=== PATIENT | male | born 1965 ===

== ENCOUNTER 2018-04-17 11:25 | Inpatient (IN) | payer OTHER ==
--- NOTE | 2018-04-17 13:04 | ED PDOC ---
HPI: Abdomen Time Seen by Provider: 04/17/18 12:04 Chief Complaint (Nursing): Abdominal Pain History Per: Patient Additional Complaint(s): Pt. states this morning he woke up with non-radiating epigastric abd pain. Reports pain has no alleviating or exacerbating factors. Attempted to have a BM prior to arrival to help relieve symptoms. Pt states stool was normal but it did not relieve abd pain. Denies N/V/D, chest pain, SOB, hemoptysis, previous abd surgeries, back pain, melena, hematochezia, BRBPR, rectal bleeding, hematemesis. Past Medical History Reviewed: Historical Data, Nursing Documentation, Vital Signs Vital Signs: Last Vital Signs Temp 97.5 F L 04/17/18 12:01 Pulse 81 04/17/18 12:01 Resp 16 04/17/18 12:01 BP 162/95 H 04/17/18 12:01 Pulse Ox 98 04/17/18 12:01 - Medical History PMH: Diabetes (no meds, diet controlled), Hypercholesterolemia (no meds, diet controlled), Sleep Apnea Denies: CAD, HTN, Hyperlipidemia, Chronic Kidney Disease - Surgical History Surgical History: No Surg Hx - Family History Family History: States: No Known Family Hx - Home Medications Home Medications: Ambulatory Orders Medication Instructions Recorded No Known Home Med 04/17/18 - Allergies Allergies/Adverse Reactions: Allergies Allergy/AdvReac Type Severity Reaction Status Date / Time No Known Allergies Allergy Verified 04/17/18 12:01 Review of Systems ROS Statement: Except As Marked, All Systems Reviewed And Found Negative Gastrointestinal: Positive for: Abdominal Pain Physical Exam - Physical Exam Appears: Positive for: Well, Non-toxic, No Acute Distress Skin: Positive for: Normal Color, Warm. Negative for: Rash Eye Exam: Positive for: Normal appearance Cardiovascular/Chest: Positive for: Regular Rate, Rhythm Respiratory: Positive for: Normal Breath Sounds Gastrointestinal/Abdominal: Positive for: Soft, Tenderness (mild epigastric tednerness). Negative for: Organomegaly, Distended Back: Negative for: L CVA Tenderness, R CVA Tenderness Neurologic/Psych: Positive for: Alert, Oriented (x3) - Laboratory Results Result Diagrams: 04/17/18 12:50 04/17/18 12:50 - ECG ECG: Positive for: Interpreted By Me ECG Rhythm: Positive for: Sinus Rhythm. Negative for: ST/T Changes Rate: 70 O2 Sat by Pulse Oximetry: 98 - Radiology X-Ray: Read By Radiologist (CXR) X-Ray Interpretation: No Acute Disease - Progress ED Course And Treament: Labs, pepcid 20mg IV, abd US ordered. 1358 Abd US: The gallbladder appears moderately distended but without mural thickening or pericholecystic fluid collection. No cholelithiasis associated. No sonographic Crowley sign reported. On re-evaluation, pt. reports feeling better. WBC: 19.9. VBG ordered. Case d/w Dr. Mccarthy, operating room surgical technician, who recommends CT. CT abd/pelvis w/ PO and IV contrast ordered. 1740 CT abd/pelvis: Dilated fluid-filled appendix. Concerning for acute appendici tis. No periappendiceal inflammatory change. No periappendiceal abscess or free air. Case d/w Dr. Davis, operating room surgical technician, who requests Zosyn to be given and states pt. can be admitted under Dr. Fuchs. Pt. and family informed of plan who both agree with plan. All questions answered . Disposition - Clinical Impression Clinical Impression: Appendicitis - Patient ED Disposition Is Patient to be Admitted: Yes - Disposition Disposition Time: 17:40 Condition: FAIR
[2018-04-17 13:07] LABS: BASO % 0.1 % (0.0-2.0); EOS % 0.2 % (0.0-4.0); HEMOGLOBIN 17.4 g/dL (12.0-18.0); LYMPH # 0.6 K/uL (1.0-4.3); LYMPH % 2.9 % (20.0-40.0); MEAN CELL VOLUME 90.8 fl (80.0-94.0); MEAN CORPUSCULAR HEMOGLOBIN 30.2 pg (27.0-31.0); MEAN CORPUSCULAR HGB CONC 33.2 g/dL (33.0-37.0); MEAN PLATELET VOLUME 9.3 fl (7.2-11.7); MONO # 0.8 K/uL (0.0-0.8); MONO % 4.1 % (0.0-10.0); NEUT # 18.4 K/uL (1.8-7.0); NEUT % 92.7 % (50.0-75.0); NRBC % 0.1 % (0.0-0.0); PLATELET COUNT 318 K/uL (130-400); RBC 5.76 Mil/uL (4.40-5.90); RED CELL DISTRIBUTION WIDTH 13.2 % (11.5-14.5); WHITE BLOOD COUNT 19.9 K/uL (4.8-10.8)
[2018-04-17 13:14] LABS: ALB/GLOB RATIO 1.2 (1.0-2.1); ALBUMIN 4.9 g/dL (3.5-5.0); ALT/SGPT 44 U/L (21-72); AST/SGOT 34 U/L (17-59); BLOOD UREA NITROGEN 18 mg/dl (9-20); CALCIUM 9.9 mg/dL (8.4-10.2); GFR NON-AFRICAN AMERICAN > 60; LIPASE 97 U/L (23-300)
[2018-04-17] MEDS ORDERED: Sodium Chloride 0.9% 1,000 ML IV STA (13:22)
--- NOTE | 2018-04-17 14:02 | US ---
Date of service: 04/17/2018 HISTORY: epigastric abd pain COMPARISON: None. TECHNIQUE: Sonographic evaluation of the abdomen. FINDINGS: LIVER: Measures 14.3 cm. Diffusely increased echogenicity of the liver parenchyma identified compatible with hepatic steatosis or other infiltrative hepatic process. Normal directional blood flow is appreciated at the main portal vein. No mass. No intrahepatic bile duct dilatation. GALLBLADDER: The gallbladder appears moderately distended but without mural thickening or pericholecystic fluid collection. No cholelithiasis associated. No sonographic Crowley sign reported. COMMON BILE DUCT: Measures 4.0 mm. No stones. No dilatation. PANCREAS: Extensive overlying bowel gas completely obscures the pancreas. RIGHT KIDNEY: Measures 10.5cm. No calculus, mass, or hydronephrosis. No suspicious parenchymal findings. LEFT KIDNEY: Measures 11.7cm. No calculus, mass, or hydronephrosis. No suspicious parenchymal findings. SPLEEN: Normal in size and contour. No mass. AORTA: No aneurysmal dilatation. IVC: Unremarkable. OTHER FINDINGS: None. IMPRESSION: 1. Hepatic steatosis or other infiltrative hepatic process identified. No intrahepatic biliary dilatation. 2. Extensive overlying bowel gas completely obscures the pancreas. 3. Examination otherwise unremarkable appearing.
[2018-04-17 14:03] LABS: VENOUS BLOOD GAS BASE EXCESS -0.7 mmol/L (0.0-2.0); VENOUS BLOOD GAS PCO2 49 mmHg (40-60); VENOUS BLOOD GAS PO2 33 mm/Hg (30-55); VENOUS BLOOD PH 7.33 (7.32-7.43)
[2018-04-17 14:08] LABS: BANDS 9 % (0-2); LYMPHOCYTE 1 % (20-50); MONOCYTE 4 % (0-10); NEUTROPHIL 84 % (42-75); REACTIVE LYMPHOCYTES 2 % (0-0); TOTAL CELLS COUNTED 100
[2018-04-17 14:12] LABS: PLATELET ESTIMATE NORMAL (NORMAL); TOXIC GRANULATION PRESENT
[2018-04-17] MEDS ORDERED: Iohexol 240 (50 ml) PO ONE (14:13)
[2018-04-17 14:29] LABS: URINE BACTERIA RARE (<OCC); URINE BILIRUBIN NEGATIVE (NEGATIVE); URINE BLOOD NEGATIVE (NEGATIVE); URINE CLARITY CLOUDY (Clear); URINE COLOR AMBER (YELLOW); URINE GLUCOSE (UA) 50 mg/dL (NEGATIVE); URINE LEUKOCYTE ESTERASE NEG Leu/uL (Negative); URINE PROTEIN 100 mg/dL (NEGATIVE); URINE UROBILINOGEN 0.2-1.0 mg/dL (0.2-1.0)
[2018-04-17] MEDS ORDERED: Iohexol 240 (50 ml) ONE (15:00)
--- NOTE | 2018-04-17 15:01 | CARD ---
APPROVED REPORT Date of service: 04/17/2018 EKG Measurement Heart [id number] <Conclusion> Normal sinus rhythm Normal ECG
[2018-04-17] MEDS ORDERED: Iohexol 300 100 ML IJ ONE (15:19)
[2018-04-17] MEDS ORDERED: Sodium Chloride 0.9% 50 ML IV ONE (15:19)
--- NOTE | 2018-04-17 15:53 | RAD ---
Date of service: 04/17/2018 HISTORY: epigastric abd pain COMPARISON: No prior. FINDINGS: LUNGS: No active pulmonary disease. PLEURA: No significant pleural effusion identified, no pneumothorax apparent. CARDIOVASCULAR: No aortic atherosclerotic calcification present. Normal cardiac size. No pulmonary vascular congestion. OSSEOUS STRUCTURES: No significant abnormalities. VISUALIZED UPPER ABDOMEN: Normal. OTHER FINDINGS: None. IMPRESSION: No active disease.
--- NOTE | 2018-04-17 17:44 | CT ---
Date of service: 04/17/2018 PROCEDURE: CT Abdomen and Pelvis with contrast HISTORY: epigastric abd pain COMPARISON: None. TECHNIQUE: Contrast dose: 95 mL Omnipaque 300 Radiation dose: Total exam DLP = 838.04 mGy-cm. This CT exam was performed using one or more of the following dose reduction techniques: Automated exposure control, adjustment of the mA and/or kV according to patient size, and/or use of iterative reconstruction technique. FINDINGS: LOWER THORAX: Unremarkable. LIVER: Unremarkable. No gross lesion or ductal dilatation. GALLBLADDER AND BILE DUCTS: Unremarkable. PANCREAS: Unremarkable. No gross lesion or ductal dilatation. SPLEEN: Unremarkable. ADRENALS: Unremarkable. No mass. KIDNEYS AND URETERS: Unremarkable. No hydronephrosis. No solid mass. VASCULATURE: Unremarkable. No aortic aneurysm. No aortic atherosclerotic calcification or mural plaque present. BOWEL: Unremarkable. No obstruction. No gross mural thickening. APPENDIX: The appendix is distended with fluid and measures up to 10 mm in diameter. There is no periappendiceal inflammatory change noted. Nevertheless, this is concerning for acute appendicitis. No periappendiceal abscess or free intraperitoneal air. Correlate clinically. PERITONEUM: Unremarkable. No free fluid. No free air. LYMPH NODES: Unremarkable. No enlarged lymph nodes. BLADDER: Unremarkable. REPRODUCTIVE: Normal prostate BONES: No acute fracture. OTHER FINDINGS: None. IMPRESSION: Dilated fluid-filled appendix. Concerning for acute appendicitis. No periappendiceal inflammatory change. No periappendiceal abscess or free air.
[2018-04-17] MEDS ORDERED: Piperacillin/Tazobact 3.375 GM in Sodium Chloride 0.9% 100 ML IVPB STA (17:55)
[2018-04-17] MEDS ORDERED: Morphine 4 MG/ML VIAL IVP PRN (18:46)
--- NOTE | 2018-04-17 18:55 | CP.PCM.HP ---
History of Present Illness - History of Present Illness History of Present Illness: 52M with PMHx of asthma, DM, presents to [facility] ED with complaints of abdominal pain. Patient states pain started this morning while working. He reported feeling epigastric discomfort initially. Patient thought it was gas cramps so he tried drinking some artemio miroslava which did not alleviate the pain. As time went by patient reports pain became generalized throughout his abdomen. Denies fever/chills, chest pain, shortness of breath, nausea/vomiting, dysuria . Reports having normal BM in AM. PMH: as stated above PSH: denies Allergies: NKDA Soc HX: denies smoking, EtOH use, illicit drug use Present on Admission - Present on Admission Any Indicators Present on Admission: No Review of Systems - Review of Systems All systems: reviewed and no additional remarkable complaints except Review of Systems: as stated in HPI Past Patient History - Past Social History Smoking Status: Former Smoker - CARDIAC Hx Hypercholesterolemia: No Hx Hypertension: No - PULMONARY Hx Sleep Apnea: Yes - NEUROLOGICAL Hx Neurological Disorder: No - HEENT Hx HEENT Problems: No - RENAL Hx Chronic Kidney Disease: No - ENDOCRINE/METABOLIC Hx Endocrine Disorders: No - HEMATOLOGICAL/ONCOLOGICAL Hx Blood Disorders: No - INTEGUMENTARY Hx Dermatological Problems: No - MUSCULOSKELETAL/RHEUMATOLOGICAL Hx Musculoskeletal Disorders: No - GASTROINTESTINAL Hx Gastrointestinal Disorders: No - GENITOURINARY/GYNECOLOGICAL Hx Genitourinary Disorders: No - PSYCHIATRIC Hx Psychophysiologic Disorder: No Hx Substance Use: No - SURGICAL HISTORY Hx Surgeries: No - ANESTHESIA Hx Anesthesia: No Meds Allergies/Adverse Reactions: Allergies Allergy/AdvReac Type Severity Reaction Status Date / Time No Known Allergies Allergy Verified 04/17/18 12:01 Physical Exam - Constitutional Appears: Non-toxic, No Acute Distress - Head Exam Head Exam: NORMOCEPHALIC - Eye Exam Eye Exam: EOMI, Normal appearance - ENT Exam ENT Exam: Mucous Membranes Dry - Respiratory Exam Respiratory Exam: NORMAL BREATHING PATTERN - Cardiovascular Exam Cardiovascular Exam: +S1, +S2. absent: Tachycardia - GI/Abdominal Exam GI & Abdominal Exam: Soft. absent: Distended, Firm, Guarding, Rebound, Rigid Additional comments: mild epigatric tenderness - Neurological Exam Neurological exam: Alert, Oriented x3 - Psychiatric Exam Psychiatric exam: Normal Mood - Skin Skin Exam: Dry, Intact, Warm Results - Vital Signs Recent Vital Signs: Last Vital Signs Temp 97.5 F L 04/17/18 12:01 Pulse 70 04/17/18 14:01 Resp 16 04/17/18 12:01 BP 162/95 H 04/17/18 12:01 Pulse Ox 98 04/17/18 14:01 - Labs Result Diagrams: 04/17/18 12:50 04/17/18 12:50 Labs: Laboratory Results - last 24 hr 04/17/18 04/17/18 04/17/18 12:50 12:50 12:50 WBC 19.9 H RBC 5.76 Hgb 17.4 Hct 52.3 H MCV 90.8 MCH 30.2 MCHC 33.2 RDW 13.2 Plt Count 318 MPV 9.3 Neut % (Auto) 92.7 H Lymph % (Auto) 2.9 L Fountain % (Auto) 4.1 Eos % (Auto) 0.2 Baso % (Auto) 0.1 Neut # (Auto) 18.4 H Lymph # (Auto) 0.6 L [place] # (Auto) 0.8 Eos # (Auto) 0.0 Baso # (Auto) 0.0 Neutrophils % (Manual) 84 H Band Neutrophils % 9 H Lymphocytes % (Manual) 1 L Reactive Lymphs % 2 H Monocytes % (Manual) 4 Toxic Granulation Present Platelet Estimate Normal RBC Morphology Normal pO2 VBG pH VBG pCO2 VBG HCO3 VBG Total CO2 VBG O2 Sat (Calc) VBG Base Excess VBG Potassium Glucose Lactate FiO2 Sodium 140 Potassium 5.1 H Chloride 97 L Carbon Dioxide 30 Anion Gap 18 BUN 18 Creatinine 1.0 Est GFR ( Amer) > 60 Est GFR (Non-Af Amer) > 60 Random Glucose 228 H Calcium 9.9 Total Bilirubin 0.6 AST 34 ALT 44 Alkaline Phosphatase 115 Troponin I < 0.0120 Total Protein 8.9 H Albumin 4.9 Globulin 4.0 H Albumin/Globulin Ratio 1.2 Lipase 97 Venous Blood Potassium Urine Color Barbara Urine Clarity Cloudy Urine pH 5.0 Ur Specific [place] 1.033 H Urine Protein 100 Urine Glucose (UA) 50 Urine Ketones 20 Urine Blood Negative Urine Nitrate Negative Urine Bilirubin Negative Urine Urobilinogen 0.2-1.0 Ur Leukocyte Esterase Neg Urine RBC (Auto) 1 Urine Microscopic WBC 3 Urine Bacteria Rare Alcohol, Quantitative < 10 04/17/18 13:55 WBC RBC Hgb Hct MCV MCH MCHC RDW Plt Count MPV Neut % (Auto) Lymph % (Auto) Fountain % (Auto) Eos % (Auto) Baso % (Auto) Neut # (Auto) Lymph # (Auto) Fountain # (Auto) Eos # (Auto) Baso # (Auto) Neutrophils % (Manual) Band Neutrophils % Lymphocytes % (Manual) Reactive Lymphs % Monocytes % (Manual) Toxic Granulation Platelet Estimate RBC Morphology pO2 33 VBG pH 7.33 VBG pCO2 49 VBG HCO3 23.3 VBG Total CO2 27.3 VBG O2 Sat (Calc) 66.6 H VBG Base Excess -0.7 L VBG Potassium 4.4 Glucose 210 H Lactate 1.6 FiO2 21.0 Sodium 134.0 Potassium Chloride 104.0 Carbon Dioxide Anion Gap BUN Creatinine Est GFR ( Amer) Est GFR (Non-Af Amer) Random Glucose Calcium Total Bilirubin AST ALT Alkaline Phosphatase Troponin I Total Protein Albumin Globulin Albumin/Globulin Ratio Lipase Venous Blood Potassium 4.4 Urine Color Urine Clarity Urine pH Ur Specific [place] Urine Protein Urine Glucose (UA) Urine Ketones Urine Blood Urine Nitrate Urine Bilirubin Urine Urobilinogen Ur Leukocyte Esterase Urine RBC (Auto) Urine Microscopic WBC Urine Bacteria Alcohol, Quantitative Assessment & Plan - Assessment and Plan (Free Text) Assessment: 52M with acute appendicitis Plan: NPO IVF Insulin sliding scale ABx Analgesics prn Anti-emetic prn GI ppx SCDs Will plan for OR for laparoscopic appendectomy, possible open D/w Dr. Jef Elliott PGY3
[2018-04-17] MEDS ORDERED: Sodium Chloride 0.9% 1,000 ML IV SCH (19:00)
[2018-04-17 19:03] LABS: INR 1.1
[2018-04-17 19:05] LABS: PARTIAL THROMBOPLASTIN TIME 30.8 Seconds (25.6-37.1)
[2018-04-17] MEDS ORDERED: Insulin Regular 100 units/ml ONE (19:16)
[2018-04-17] MEDS ORDERED: Piperacillin/Tazobact 3.375 gm Inj IVPB ONE (19:16)
[2018-04-17] MEDS: Insulin Regular 100 units/ml SC SCH (19:23)
[2018-04-17] MEDS: Dextrose 5%/0.9% NS 1,000 ML IV SCH (22:54)
[2018-04-17] MEDS: Piperacillin/Tazobact 3.375 GM in Sodium Chloride 0.9% 100 ML IVPB SCH (22:55)
[2018-04-18] MEDS: Insulin Regular 100 units/ml SC SCH ×4 (00:51→19:26)
[2018-04-18] MEDS: Piperacillin/Tazobact 3.375 GM in Sodium Chloride 0.9% 100 ML IVPB SCH ×4 (03:23→21:42)
[2018-04-18 06:28] LABS: BASO # 0.1 K/uL (0.0-0.2); BASO % 0.7 % (0.0-2.0); EOS # 0.7 K/uL (0.0-0.7); EOS % 7.6 % (0.0-4.0); HEMOGLOBIN 14.3 g/dL (12.0-18.0); LYMPH # 1.7 K/uL (1.0-4.3); LYMPH % 17.8 % (20.0-40.0); MEAN CELL VOLUME 91.3 fl (80.0-94.0); MEAN CORPUSCULAR HEMOGLOBIN 31.1 pg (27.0-31.0); MEAN PLATELET VOLUME 9.4 fl (7.2-11.7); MONO # 0.7 K/uL (0.0-0.8); MONO % 6.8 % (0.0-10.0); NEUT # 6.5 K/uL (1.8-7.0); NEUT % 67.1 % (50.0-75.0); NRBC % 0.2 % (0.0-0.0); RBC 4.6 Mil/uL (4.40-5.90); RED CELL DISTRIBUTION WIDTH 13.4 % (11.5-14.5); WHITE BLOOD COUNT 9.7 K/uL (4.8-10.8)
[2018-04-18 06:57] LABS: BLOOD UREA NITROGEN 14 mg/dl (9-20); CALCIUM 8.1 mg/dL (8.4-10.2); GFR NON-AFRICAN AMERICAN > 60
[2018-04-18] MEDS ORDERED: Influenza Vaccine 60 mcg/0.5 mL SYR (4YR UP) IM ONE (07:30)
[2018-04-18] MEDS ORDERED: Influenza Vaccine (5 YR UP)/PF 60 MCG/0.5 ML SYR IM ONE (09:00)
[2018-04-18] MEDS: Dextrose 5%/0.9% NS 1,000 ML IV SCH (09:22)
[2018-04-18] MEDS ORDERED: Midazolam 2 MG/2 ML VIAL ONE (09:40)
[2018-04-18] MEDS ORDERED: Rocuronium 10 mg/ml (5 ml) ONE (09:40)
[2018-04-18] MEDS ORDERED: Neostigmine 1:1000 (1 mg/ml) Inj ONE (09:40)
[2018-04-18] MEDS ORDERED: Lidocaine 4% (Laryng-O-Jet) Kit MM ONE (09:40)
[2018-04-18] MEDS ORDERED: Propofol 10 mg/ml Inj (20 ML) ONE (09:40)
[2018-04-18] MEDS ORDERED: Succinylcholine Chloride 20 mg/ml Syr (5 ml) IV ONE (09:41)
[2018-04-18] MEDS ORDERED: Phenylephrine 10 mg/ml Inj ONE (09:45)
[2018-04-18] MEDS ORDERED: Bupivacaine HCl 0.5% PF (30 ml) Inj ONE (09:47)
[2018-04-18] MEDS ORDERED: DEXTROSE IV ONE (11:15)
[2018-04-18] MEDS ORDERED: NS IV ONE (11:15)
[2018-04-18] MEDS ORDERED: Lactated Ringer's 1,000 ML IV ONE (11:18)
--- NOTE | 2018-04-18 11:43 | PCM.SURG1 ---
Surgeon's Initial Post Op Note - Surgeon's Notes Surgeon: Dr. Fuchs Neighborhood Aide: Dr. Jennifer Mccarthy Type of Anesthesia: General Endo, Local Pre-Operative Diagnosis: Acute Appendicitis Operative Findings: acutely inflammed appendix Post-Operative Diagnosis: acute appendicitis Operation Performed: laparoscopic appendectomy Specimen/Specimens Removed: appendix Estimated Blood Loss: EBL {In ML}: 10 Blood Products Given: N/A Drains Used: No Drains Post-Op Condition: Good Date of Surgery/Procedure: 04/18/18 Time of Surgery/Procedure: 11:43
[2018-04-18] MEDS ORDERED: Morphine 5 MG/ML SYRINGE IVP PRN (11:44)
[2018-04-18] MEDS ORDERED: Lactated Ringer's 1,000 ML IV SCH (11:45)
[2018-04-19] MEDS: Insulin Regular 100 units/ml SC SCH ×2 (00:59→09:32)
[2018-04-19] MEDS: Piperacillin/Tazobact 3.375 GM in Sodium Chloride 0.9% 100 ML IVPB SCH (04:11)
[2018-04-19] MEDS ORDERED: Insulin NPH Human 100 Units/ml Inj SC SCH (08:00)
--- NOTE | 2018-04-19 08:04 | CP.PCM.DIS ---
Provider - Provider Date of Admission: 04/17/18 18:15 Attending physician: James Fuchs MD Consults: 04/17/18 17:56 General Surgery Consult Stat Comment: Consulting Provider: James Fuchs Consulting Physician: James Fuchs Reason for Consult: appendicitis Time Spent in preparation of Discharge (in minutes): 25 Hospital Course - Lab Results Lab Results: Micro Results 04/17/18 18:40 Blood-Venous Blood Culture - Preliminary NO GROWTH AFTER 24 HOURS 04/17/18 19:00 Blood-Venous Blood Culture - Preliminary NO GROWTH AFTER 24 HOURS Most Recent Lab Values WBC 9.7 K/uL (4.8-10.8) D 04/18/18 06:00 RBC 4.60 Mil/uL (4.40-5.90) 04/18/18 06:00 Hgb 14.3 g/dL (12.0-18.0) D 04/18/18 06:00 Hct 42.0 % (35.0-51.0) 04/18/18 06:00 MCV 91.3 fl (80.0-94.0) 04/18/18 06:00 MCH 31.1 pg (27.0-31.0) H 04/18/18 06:00 MCHC 34.0 g/dL (33.0-37.0) 04/18/18 06:00 RDW 13.4 % (11.5-14.5) 04/18/18 06:00 Plt Count 291 K/uL (130-400) 04/18/18 06:00 MPV 9.4 fl (7.2-11.7) 04/18/18 06:00 Neut % (Auto) 67.1 % (50.0-75.0) 04/18/18 06:00 Lymph % (Auto) 17.8 % (20.0-40.0) L 04/18/18 06:00 Clarke % (Auto) 6.8 % (0.0-10.0) 04/18/18 06:00 Eos % (Auto) 7.6 % (0.0-4.0) H 04/18/18 06:00 Baso % (Auto) 0.7 % (0.0-2.0) 04/18/18 06:00 Neut # (Auto) 6.5 K/uL (1.8-7.0) 04/18/18 06:00 Lymph # (Auto) 1.7 K/uL (1.0-4.3) 04/18/18 06:00 Clarke # (Auto) 0.7 K/uL (0.0-0.8) 04/18/18 06:00 Eos # (Auto) 0.7 K/uL (0.0-0.7) 04/18/18 06:00 Baso # (Auto) 0.1 K/uL (0.0-0.2) 04/18/18 06:00 Neutrophils % (Manual) 84 % (42-75) H 04/17/18 12:50 Band Neutrophils % 9 % (0-2) H 04/17/18 12:50 Lymphocytes % (Manual) 1 % (20-50) L 04/17/18 12:50 Reactive Lymphs % 2 % (0-0) H 04/17/18 12:50 Monocytes % (Manual) 4 % (0-10) 04/17/18 12:50 Toxic Granulation Present 04/17/18 12:50 Platelet Estimate Normal (NORMAL) 04/17/18 12:50 RBC Morphology Normal (NORMAL) 04/17/18 12:50 PT 12.0 Seconds (9.8-13.1) 04/17/18 18:53 INR 1.1 04/17/18 18:53 APTT 30.8 Seconds (25.6-37.1) 04/17/18 18:53 pO2 33 mm/Hg (30-55) 04/17/18 13:55 VBG pH 7.33 (7.32-7.43) 04/17/18 13:55 VBG pCO2 49 mmHg (40-60) 04/17/18 13:55 VBG HCO3 23.3 mmol/L 04/17/18 13:55 VBG Total CO2 27.3 mmol/L (22-28) 04/17/18 13:55 VBG O2 Sat (Calc) 66.6 % (40-65) H 04/17/18 13:55 VBG Base Excess -0.7 mmol/L (0.0-2.0) L 04/17/18 13:55 VBG Potassium 4.4 mmol/L (3.6-5.2) 04/17/18 13:55 Sodium 134.0 mmol/L (132-148) 04/17/18 13:55 Chloride 104.0 mmol/L (98-107) 04/17/18 13:55 Glucose 210 mg/dL (75-110) H 04/17/18 13:55 Lactate 1.6 mmol/L (0.7-2.1) 04/17/18 13:55 FiO2 21.0 % 04/17/18 13:55 Sodium 139 mmol/l (132-148) 04/18/18 06:00 Potassium 4.0 MMOL/L (3.6-5.0) 04/18/18 06:00 Chloride 101 mmol/L (98-107) 04/18/18 06:00 Carbon Dioxide 26 mmol/L (22-30) 04/18/18 06:00 Anion Gap 16 (10-20) 04/18/18 06:00 BUN 14 mg/dl (9-20) 04/18/18 06:00 Creatinine 1.1 mg/dl (0.8-1.5) 04/18/18 06:00 Est GFR ( Amer) > 60 04/18/18 06:00 Est GFR (Non-Af Amer) > 60 04/18/18 06:00 POC Glucose (mg/dL) 154 mg/dL (65-110) H 04/19/18 05:28 Random Glucose 134 mg/dL (75-110) H 04/18/18 06:00 Calcium 8.1 mg/dL (8.4-10.2) L 04/18/18 06:00 Phosphorus 2.9 mg/dl (2.5-4.5) 04/18/18 06:00 Magnesium 1.8 MG/DL (1.6-2.3) 04/18/18 06:00 Total Bilirubin 0.6 mg/dl (0.2-1.3) 04/17/18 12:50 AST 34 U/L (17-59) 04/17/18 12:50 ALT 44 U/L (21-72) 04/17/18 12:50 Alkaline Phosphatase 115 U/L (38-126) 04/17/18 12:50 Troponin I < 0.0120 ng/mL (0.00-0.120) 04/17/18 12:50 Total Protein 8.9 G/DL (6.3-8.2) H 04/17/18 12:50 Albumin 4.9 g/dL (3.5-5.0) 04/17/18 12:50 Globulin 4.0 gm/dL (2.2-3.9) H 04/17/18 12:50 Albumin/Globulin Ratio 1.2 (1.0-2.1) 04/17/18 12:50 Lipase 97 U/L (23-300) 04/17/18 12:50 Venous Blood Potassium 4.4 mmol/L (3.6-5.2) 04/17/18 13:55 Urine Color Barbara (YELLOW) 04/17/18 12:50 Urine Clarity Cloudy (Clear) 04/17/18 12:50 Urine pH 5.0 (5.0-8.0) 04/17/18 12:50 Ur Specific [place] 1.033 (1.003-1.030) H 04/17/18 12:50 Urine Protein 100 mg/dL (NEGATIVE) 04/17/18 12:50 Urine Glucose (UA) 50 mg/dL (NEGATIVE) 04/17/18 12:50 Urine Ketones 20 mg/dL (NEGATIVE) 04/17/18 12:50 Urine Blood Negative (NEGATIVE) 04/17/18 12:50 Urine Nitrate Negative (NEGATIVE) 04/17/18 12:50 Urine Bilirubin Negative (NEGATIVE) 04/17/18 12:50 Urine Urobilinogen 0.2-1.0 mg/dL (0.2-1.0) 04/17/18 12:50 Ur Leukocyte Esterase Neg Adalberto/uL (Negative) 04/17/18 12:50 Urine RBC (Auto) 1 /hpf (0-3) 04/17/18 12:50 Urine Microscopic WBC 3 /hpf (0-5) 04/17/18 12:50 Urine Bacteria Rare (<OCC) 04/17/18 12:50 Alcohol, Quantitative < 10 mg/dl (0-10) 04/17/18 12:50 Blood Type O POSITIVE 04/17/18 18:53 Antibody Screen Negative 04/17/18 18:53 BBK History Checked No verified bt 04/17/18 18:53 - Hospital Course Hospital Course: 20: 52M with PMHx of asthma, DM, presents to [facility] ED with complaints of abdominal pain. Patient states pain started this morning while working. He reported feeling epigastric discomfort initially. Patient thought it was gas cramps so he tried drinking some artemio miroslava which did not alleviate the pain. As time went by patient reports pain became generalized throughout his abdomen. Denies fever/chills, chest pain, shortness of breath, nausea/vomiting, dysuria . Reports having normal BM in AM. 04/18: Patient underwent laparoscopic appendectomy, no intra-operative complications. 04/19: Patient doing well tolerating diet. Complaining of shoulder pain 2/2 pneumoperitoneum. Recommend ambulating. Will follow up in surgery office in 1 week. Above is a brief summary of hospital events. For more details please see EMR. Discharge Exam - Head Exam Head Exam: NORMOCEPHALIC - Eye Exam Eye Exam: EOMI, Normal appearance - ENT Exam ENT Exam: Mucous Membranes Moist - Respiratory Exam Respiratory Exam: NORMAL BREATHING PATTERN - Cardiovascular Exam Cardiovascular Exam: +S1, +S2 - GI/Abdominal Exam GI & Abdominal Exam: Soft, Tenderness. absent: Distended, Firm, Guarding, Hernia, Rebound, Rigid Additional comments: incision site tenderness - Neurological Exam Neurological exam: Alert, Oriented x3 - Psychiatric Exam Psychiatric exam: Normal Mood - Skin Skin Exam: Dry, Intact, Warm Discharge Plan - Follow Up Plan Condition: STABLE Disposition: HOME/ ROUTINE Instructions: Appendicitis, Adult (DC) Additional Instructions: Follow up with Dr. Fuchs in 1 week OK to shower Avoid heavy lifting for ~6 weeks Referrals: Wilder Acuna MD [Family Provider] - James Fuchs MD [Staff Provider] -
[2018-04-19 08:28] VITALS: BP 161/98; PULSE 72; RESP 20; TEMP 98.3; O2SAT 95
[2018-04-19] MEDS ORDERED: Enoxaparin 40 mg Syringe SC SCH (09:00)
--- NOTE | 2018-04-22 09:06 | OP ---
PROCEDURE DATE: 04/18/2018 PREOPERATIVE DIAGNOSIS: Acute appendicitis. POSTOPERATIVE DIAGNOSIS: Acute appendicitis. PROCEDURE: Laparoscopic appendectomy. SURGEON: James Fuchs MD MODELING AGENT: Santa Rodriguez, PGY-4 SECOND MODELING AGENT: Belem Mccarthy, PGY-2 ANESTHESIOLOGIST: Chang Yost MD ANESTHESIA: General as well as local. PROCEDURE IN DETAIL: The patient is 52-year-old male who presented to the hospital and diagnosed with acute appendicitis. Procedure was explained in detail and after informed consent was obtained the patient was taken into the operative suite where general anesthesia was induced. The patient was prepped and draped in the usual sterile fashion. Left arm was tucked. An infraumbilical 5 mm incision was made using #11 blade. Two towel clamps were placed on either side of the incision at the umbilicus and a Veress needle was placed through the umbilicus. A pneumoperitoneum was obtained; entering pressure was 6 and final pneumoperitoneum pressure was 15. Once appropriate pneumoperitoneum was obtained, under Visi-Port technique a 5 trocar was inserted into the infraumbilical incision. Underlying mesentery was inspected to ensure no damage was made with Veress needle insertion. Focus was then made towards the left lower quadrant of the patient and a 12 mm incision was made using #11 blade. Trocar was placed under direct supervision. Focus was then directed down to the suprapubic site. A 5 mm incision was made with the #11 blade and 5 mm trocar was placed under direct vision. Focus was then directed to the right lower quadrant of the patient in which the appendix was easily identified. Using [place] dissector a mesentery window was made right at the base of the appendix where it met with the cecum. Using a blue load Endo stapler, the base of the appendix was stapled across removing it from the cecum. Bovie Harmonic was then used to dissect the mesentery and take the appendiceal artery. Once this was achieved, EndoCatch bag was placed inside the abdomen and appendix was easily removed. The base of the appendix on the cecum was inspected to ensure good hemostasis. Once the appendix was removed from the abdomen, the entirety of the abdomen was inspected. After that trocars were withdrawn under direct supervision. Pneumoperitoneum was relieved. The right lower quadrant incision then proceeded to be closed with 0 Vicryl on UR6. The remainder of the incisions were then closed with 4-0 Monocryl in interrupted and running length fashion. Local was then injected to the three trocar sites and once the abdomen was cleaned and dried, Dermabond dressing was placed over the incisions. The patient was then extubated and transferred to PACU in good, stable condition. The patient tolerated the procedure well. COMPLICATIONS: None. BLOOD LOSS: 10 mL. SPECIMEN: Appendix. Santa Rodriguez DO James Fuchs MD
== END 2018-04-19 17:12 | disposition home or self-care (01) | DRG 343 ==
LOC: H.ER 11:25 → H.ERHOLD 18:15 → H.MEDSURG1 21:46
PROVIDERS: ADMIT Surgery; ATTEND Surgery
PROC: 3E02340 Introduction of Influenza Vaccine into Muscle, Percutaneous Approach (ICD-10-PCS; 2018-04-18)
PROC: 0DTJ4ZZ Resection of Appendix, Percutaneous Endoscopic Approach (ICD-10-PCS; principal; 2018-04-18 10:00)
DX: K35.80 Unspecified acute appendicitis (principal); E11.9 Type 2 diabetes mellitus without complications; J45.909 Unspecified asthma, uncomplicated; Z23 Encounter for immunization; Z87.891 Personal history of nicotine dependence